=== PATIENT | female | born 1985 | race Caucasian/White ===

== ENCOUNTER 2025-01-22 15:04 | Outpatient (CLI) | payer BC | END 2025-01-22 15:05 | disposition home or self-care (01) | LOC: SCSMRI 15:04 → EDBD 15:30 | PROVIDERS: ATTEND Family Medicine Sports Medicine | DX: S93.621A Sprain of tarsometatarsal ligament of right foot, initial encounter (principal); S96.111A Strain of muscle and tendon of long extensor muscle of toe at ankle and foot level, right foot, initial encounter; M65.971 Unspecified synovitis and tenosynovitis, right ankle and foot ==